=== PATIENT | male | born 1945 | race Caucasian/White ===

== ENCOUNTER 2019-04-23 10:36 | Day surgery (SDC) | payer MEDICARE ==
[~2019-04-23] VITALS: Ht 177.8 cm; Wt 115.2 kg
[~2019-04-23 10:36] MED LIST: ASPI81TA85 PO; ATOR40TA75 PO; LISI10TA15 PO; METO25TA4 PO; NS 1,000 ML IV ONE; PANT40TA3 PO
[2019-04-23] MEDS ORDERED: PROPOFOL 200 MG/20 ML VIAL As Ordered ONE (11:07)
[2019-04-23] MEDS ORDERED: LIDOCAINE 2% INJ 100 MG/5 ML SDV (FOR ANES.) As Ordered ONE (11:07)
--- NOTE | 2019-04-23 12:59 | ROOR ---
Patient Name: Lucho Hogan Procedure Date: 04/23/2019 12:19 PM Date of : 1945 Age: 73 Room: [facility] Gender: Male Note Status: Finalized Procedure: Total Colonoscopy to Cecum + Cold Snare Polypectomy + Hemoclips Indications: Colon cancer screening in patient at increased risk: Colorectal cancer in father Providers: Jaime Singer MD Referring MD: MARCO CASTRO MD Requesting Provider: Medicines: Monitored Anesthesia Care Complications: No immediate complications. Procedure: Pre-Anesthesia Assessment: - The heart rate, respiratory rate, oxygen saturations, blood pressure, adequacy of pulmonary ventilation, and response to care were monitored throughout the procedure. The Colonoscope was introduced through the anus and advanced to the cecum, identified by appendiceal orifice and ileocecal valve. The colonoscopy was performed without difficulty. The patient tolerated the procedure well. The quality of the bowel preparation was good. Findings: The perianal and digital rectal examinations were normal. Non-bleeding internal hemorrhoids were found during retroflexion. The hemorrhoids were small and Grade I (internal hemorrhoids that do not prolapse). Multiple small and large-mouthed diverticula were found in the recto-sigmoid colon, sigmoid colon and descending colon. A small polyp was found in the cecum. The polyp was sessile. The polyp was removed with a cold snare. Resection and retrieval were complete. To prevent bleeding after the polypectomy, one hemostatic clip was successfully placed (MR conditional). There was no bleeding at the end of the procedure. The exam was otherwise without abnormality on direct and retroflexion views. Impression: - Non-bleeding internal hemorrhoids. - Diverticulosis in the recto-sigmoid colon, in the sigmoid colon and in the descending colon. - One small polyp in the cecum, removed with a cold snare. Resected and retrieved. Clip (MR conditional) was placed. - The examination was otherwise normal on direct and retroflexion views. - The exam was otherwise normal to the cecum. Recommendation: - Patient has a contact number available for emergencies. The signs and symptoms of potential delayed complications were discussed with the patient. Return to normal activities tomorrow. Written discharge instructions were provided to the patient. - High fiber diet. - Discharge patient to home. - Continue present medications. - Await pathology results. - Telephone GI clinic for pathology results in 1 week. - Repeat colonoscopy for surveillance based on pathology results. - Return to referring physician. - The findings and recommendations were discussed with the patient. Jaime Singer MD Jaime Singer MD 04/23/2019 12:58:55 PM Electronically signed by Jaime Singer MD Number of Addenda: 0 Note Initiated On: 04/23/2019 12:19 PM Estimated Blood Loss: Estimated blood loss: none.
[2019-04-23 13:15] VITALS: BP 173/88
== END 2019-04-23 13:31 | disposition home or self-care (01) ==
LOC: M OPP 10:36
PROVIDERS: ATTEND Internal Medicine Gastroenterology
DX: Z12.11 Encounter for screening for malignant neoplasm of colon (principal); Z80.0 Family history of malignant neoplasm of digestive organs; K64.0 First degree hemorrhoids; K57.30 Diverticulosis of large intestine without perforation or abscess without bleeding; D12.0 Benign neoplasm of cecum; I25.10 Atherosclerotic heart disease of native coronary artery without angina pectoris; Z95.5 Presence of coronary angioplasty implant and graft; Z95.1 Presence of aortocoronary bypass graft; I10 Essential (primary) hypertension; E78.5 Hyperlipidemia, unspecified; K21.9 Gastro-esophageal reflux disease without esophagitis; Z79.82 Long term (current) use of aspirin; Z79.899 Other long term (current) drug therapy

== ENCOUNTER 2025-02-09 08:39 | Day surgery (SDC) | payer MEDICARE ==
[~2025-02-09] VITALS: Ht 180.3 cm; Wt 10164.1 kg
[~2025-02-09 08:39] MED LIST changes: -ASPI81TA85 PO; +ASPI81TA86 PO; +FAMO40TA3 PO; +FOLI800C PO; -LISI10TA15 PO; +LISI10TA24 PO; -NS 1,000 ML IV ONE; +PANT40TA29 PO; -PANT40TA3 PO
[2025-02-09] MEDS ORDERED: LIDOCAINE 2% 100 MG/5 ML SDV (FOR ANES.) As Ordered ONE (10:11)
[2025-02-09 10:21] VITALS: TEMP 97.5
[2025-02-09 10:46] VITALS: BP 155/73; O2SAT 98
== END 2025-02-09 10:47 | disposition home or self-care (01) ==
LOC: M OPP 08:39
PROVIDERS: ATTEND Internal Medicine Gastroenterology
DX: K63.5 Polyp of colon (principal); K57.30 Diverticulosis of large intestine without perforation or abscess without bleeding; K64.0 First degree hemorrhoids; Z86.0100 Personal history of colon polyps, unspecified; Z80.0 Family history of malignant neoplasm of digestive organs; Z95.5 Presence of coronary angioplasty implant and graft; Z79.82 Long term (current) use of aspirin; Z79.899 Other long term (current) drug therapy; Z95.1 Presence of aortocoronary bypass graft